=== PATIENT | male | born 1935 | race Two or more races ===

== ENCOUNTER 2020-03-13 12:21 | Emergency (ER) | payer MEDICARE, OTHER ==
[~2020-03-13] VITALS: Ht 172.7 cm; Wt 86.2 kg
--- NOTE | 2020-03-13 12:30 | NUR ---
Dr Guerrero at the bedside for MSE.
[2020-03-13] MEDS ORDERED: IV NORMAL SALINE 1000 ML BAG IV ONE (12:45)
[2020-03-13 14:18] LABS: BASOPHILS % (AUTO) 0.4 % (0.0-2.0); EOSINOPHILS # (AUTO) 0.4 K/uL (0.0-0.7); EOSINOPHILS % (AUTO) 4.5 % (0.0-7.0); HEMATOCRIT 36.1 % (36.7-47.1); HEMOGLOBIN 11.5 g/dL (12.5-16.3); LYMPHOCYTES # (AUTO) 3.6 K/uL (20.0-40.0); LYMPHOCYTES % (AUTO) 38.5 % (20.5-51.5); MEAN CORPUSCULAR HEMOGLOBIN 31.1 uug (23.8-33.4); MEAN CORPUSCULAR HGB CONC 32 g/dL (32.5-36.3); MEAN CORPUSCULAR VOLUME 97.6 fL (73.0-96.2); MONOCYTES # (AUTO) 1.2 K/uL (2.0-10.0); MONOCYTES % (AUTO) 13.3 % (0.0-11.0); NEUTROPHILS # (AUTO) 4.1 K/uL (1.8-8.9); NEUTROPHILS % (AUTO) 43.3 % (38.5-71.5); PLATELET COUNT (AUTO) 159 K/uL (152-348); WHITE BLOOD COUNT (AUTO) 9.4 K/uL (3.6-10.2)
[2020-03-13 14:23] LABS: CARBON DIOXIDE 24 mmol/L (21-32); CHLORIDE 120 mmol/L (98-107); CREATININE 2.4 mg/dL (0.6-1.3); POTASSIUM 4.6 mmol/L (3.5-5.1); UREA NITROGEN, BLOOD 46 mg/dL (7-18)
[2020-03-13 14:26] LABS: GLUCOSE 331 mg/dL (74-106)
[2020-03-13 14:29] LABS: ALANINE AMINOTRANSFERASE 27 U/L (16-63); ALKALINE PHOSPHATASE 64 U/L (50-136); ASPARTATE AMINOTRANSFERASE 26 U/L (15-37); BILIRUBIN,DIRECT 0.1 mg/dL (0.0-0.2); BILIRUBIN,TOTAL 0.3 mg/dL (0.2-1.0); LIPASE 193 U/L (73-393); TOTAL PROTEIN, SERUM 6.9 g/dL (6.4-8.2)
[2020-03-13] MEDS ORDERED: INSULIN REGULAR, HUMAN 300 UNIT/3 ML VIAL SQ ONE (14:45)
[2020-03-13] MEDS ORDERED: INSULIN REGULAR, HUMAN 300 UNIT/3 ML VIAL ONE (15:38)
--- NOTE | 2020-03-13 16:50 | NUR ---
Placed a call to [facility] for Tx, ETA is [id number].
--- NOTE | 2020-03-13 17:52 | NUR ---
Patient is resting comfortably in bed with eyes closed, NAD noted.
--- NOTE | 2020-03-13 19:58 | NUR ---
Report given to transfering inspector glass or mirror, all belongings sent w/ pt. Pt left ER in stable condition.
[2020-03-13 19:59] VITALS: BP 145/93
== END 2020-03-13 20:00 ==
LOC: ER 12:21
DX: E11.22 Type 2 diabetes mellitus with diabetic chronic kidney disease (principal); N18.9 Chronic kidney disease, unspecified; E78.5 Hyperlipidemia, unspecified; Z86.31 Personal history of diabetic foot ulcer; R94.31 Abnormal electrocardiogram [ECG] [EKG]; Z20.828 Contact with and (suspected) exposure to other viral communicable diseases; G30.9 Alzheimer's disease, unspecified; F02.81 Dementia in other diseases classified elsewhere, unspecified severity, with behavioral disturbance; H54.60 Unqualified visual loss, one eye, unspecified
CPT/HCPCS: 36415; 71045; 80048; 80076; 82140; 82962 ×2; 83605 ×2; 83690; 84443; 84484; 85025; 85730; 87040; 87426; 93005; 96360; 96361; 96372; 99285; J1815; U0003; 70030-TC; A4663